=== PATIENT | male | born 1945 | race Caucasian/White ===

== ENCOUNTER 2022-12-03 18:08 | Emergency (ER) | payer MEDICARE, MEDICAID ==
[~2022-12-03] VITALS: Ht 188 cm; Wt 90.0 kg
[2022-12-03] MEDS ORDERED: budesonide 0.5mg/2ml UD nebule IH ONE (18:25)
[2022-12-03] MEDS ORDERED: ipratropium/albuterol 3ml nebule NEB ONE (18:25)
[2022-12-03 18:59] LABS: ABG BASE EXCESS -0.9 mmol/L (-2.0-2.0); ABG HCO3 22.9 mmol/L (22.0-26.0); ABG PCO2 (T) 36.3 mmHg (35.0-48.0); ABG PO2 (T) 100.5 mmHg (75.0-100.0); ALLEN'S TEST POSITIVE; FCOHb 1.6 % (0.0-3.9); FMetHb 0.3 % (0.0-1.5); FO2Hb 95.2 % (94-97); PATIENT TEMPERATURE 37.6; TOTAL HEMOGLOBIN 14.3 G/dl (14.0-17.9)
[2022-12-03 19:11] LABS: BASOPHILS # (AUTO) 0.1 X10'3 (0-0.2); BASOPHILS % (AUTO) 0.6 % (0-1); EOSINOPHILS # (AUTO) 0.2 X10'3 (0-0.9); EOSINOPHILS % (AUTO) 1.6 % (0-6); HEMATOCRIT 43.9 % (42.0-52.0); HEMOGLOBIN 14.2 g/dl (14.0-17.9); LYMPHOCYTES # (AUTO) 2.9 X10'3 (1.1-4.8); LYMPHOCYTES % (AUTO) 23.3 % (21-51); MEAN CORPUSCULAR HEMOGLOBIN 29.1 PG (27.0-31.0); MEAN CORPUSCULAR HGB CONC 32.3 g/dL (33.0-36.5); MEAN CORPUSCULAR VOLUME 90.2 FL (78-98); MEAN PLATELET VOLUME 7.5 FL (7.4-10.4); MONOCYTES % (AUTO) 15.9 % (2-12); NEUTROPHILS # (AUTO) 7.4 X10'3 (1.8-7.7); NEUTROPHILS % (AUTO) 58.6 % (42-75); PLATELET COUNT 370 X10'3 (140-440); RED BLOOD COUNT 4.87 X10'6 (4.70-6.10); RED CELL DISTRIBUTION WIDTH 15.8 % (11.5-14.5); WHITE BLOOD COUNT 12.6 X10'3 (4.5-11.0)
[2022-12-03 19:17] LABS: ALANINE AMINOTRANSFERASE 8 U/L (12-78); ALBUMIN 2.9 G/DL (3.4-5.0); ALBUMIN/GLOBULIN RATIO 0.9 (1.1-1.5); ALKALINE PHOSPHATASE 58 IU/L (46-116); ANION GAP 9 (8-16); ASPARTATE AMINO TRANSFERASE 13 U/L (10-37); BILIRUBIN,TOTAL 0.7 MG/DL (0.1-1.0); BLOOD UREA NITROGEN 18 MG/DL (7-18); CALCIUM 8.4 MG/DL (8.5-10.1); CHLORIDE 104 MMOL/L (99-107); GLUCOSE 89 MG/DL (70-104); POTASSIUM 3.9 MMOL/L (3.5-5.1); SODIUM 138 MMOL/L (135-145); TOTAL CARBON DIOXIDE 25.5 MMOL/L (24-32); eGFR 82 ML/MIN
[2022-12-03] MEDS ORDERED: doxycycline inj 100 MG in normal saline 100ml IV soln 100 ML IV ONE (19:50)
[2022-12-03] MEDS ORDERED: DOXY-1 PO (19:52)
[2022-12-03 20:27] LABS: TOTAL CELLS COUNTED 100
[2022-12-03 20:28] LABS: PLATELET ESTIMATE NORMAL; POIKILOCYTOSIS FEW
[2022-12-03 20:29] LABS: GIANT PLATELET FEW; LARGE PLATELETS FEW
[2022-12-03 20:30] LABS: SMUDGE CELLS 1+
[2022-12-03 23:14] VITALS: BP 111/60
== END 2022-12-03 23:19 ==
LOC: ER 18:10
DX: R06.02 Shortness of breath (principal)
CPT/HCPCS: 36415; 36600; 71045; 80053; 82803; 83880; 85007; 85018; 85025; 87040; 94640; 96365; 96375; 99284; J3490; J7030; 94760

== ENCOUNTER 2023-03-13 11:42 | Emergency (ER) | payer MEDICARE, MEDICAID, OTHER ==
[~2023-03-13] VITALS: Ht 175.3 cm; Wt 55.0 kg
[2023-03-13 11:56] VITALS: TEMP 97.8
--- NOTE | 2023-03-13 12:10 | NUR ---
FALL / SZ PRECAUTIONS IN PLACE
[2023-03-13 12:44] LABS: BASOPHILS % (AUTO) 0.2 % (0-1); EOSINOPHILS # (AUTO) 0.1 X10'3 (0-0.9); EOSINOPHILS % (AUTO) 0.3 % (0-6); HEMATOCRIT 43.1 % (42.0-52.0); HEMOGLOBIN 13.5 g/dl (14.0-17.9); LYMPHOCYTES # (AUTO) 1.1 X10'3 (1.1-4.8); LYMPHOCYTES % (AUTO) 6.3 % (21-51); MEAN CORPUSCULAR HEMOGLOBIN 28.8 PG (27.0-31.0); MEAN CORPUSCULAR HGB CONC 31.3 g/dL (33.0-36.5); MEAN CORPUSCULAR VOLUME 91.8 FL (78-98); MEAN PLATELET VOLUME 8.6 FL (7.4-10.4); MONOCYTES # (AUTO) 0.9 X10'3 (0-0.9); MONOCYTES % (AUTO) 5.2 % (2-12); NEUTROPHILS # (AUTO) 14.8 X10'3 (1.8-7.7); PLATELET COUNT 317 X10'3 (140-440); WHITE BLOOD COUNT 16.8 X10'3 (4.5-11.0)
[2023-03-13 13:00] LABS: APTT 23 SECONDS (22-32); PROTHROMBIN TIME 10.4 SECONDS (9.0-12.0)
[2023-03-13 13:09] LABS: ALANINE AMINOTRANSFERASE 8 U/L (12-78); ALBUMIN 2.8 G/DL (3.4-5.0); ALBUMIN/GLOBULIN RATIO 0.8 (1.1-1.5); ALKALINE PHOSPHATASE 81 IU/L (46-116); ANION GAP 29 (8-16); ASPARTATE AMINO TRANSFERASE 14 U/L (10-37); BILIRUBIN,TOTAL 0.4 MG/DL (0.1-1.0); BLOOD UREA NITROGEN 13 MG/DL (7-18); BUN/CREATININE RATIO 9.6 (10.0-20.0); CALCIUM 9.2 MG/DL (8.5-10.1); CHLORIDE 98 MMOL/L (99-107); CREATININE 1.36 MG/DL (0.60-1.10); GLUCOSE 122 MG/DL (70-104); POTASSIUM 3.6 MMOL/L (3.5-5.1); SODIUM 134 MMOL/L (135-145); TOTAL PROTEIN 6.1 G/DL (6.4-8.2); eCRCL 34 ML/MIN; eGFR 51 ML/MIN
[2023-03-13 13:11] LABS: TOTAL CELLS COUNTED 100
[2023-03-13 13:12] LABS: PLATELET ESTIMATE NORMAL
--- NOTE | 2023-03-13 13:17 | NUR ---
[facility] and spoke with jae díaz rn. jae advised that the pt was sent to the ER to be kept comfortable. pt is DNR/comfort care only, ER provider wanted further clarification on what the [facility] considers "comfortable". jae's contact [phone]
[2023-03-13 13:21] LABS: TOTAL CARBON DIOXIDE 6.7 MMOL/L (24-32)
[2023-03-13] MEDS ORDERED: POLY1DRO2 OP (13:36)
[2023-03-13] MEDS ORDERED: CYAN-34 PO (13:36)
[2023-03-13] MEDS ORDERED: CARB1TAB42 PO (13:36)
[2023-03-13] MEDS ORDERED: DOCU-148 PO (13:36)
[2023-03-13] MEDS ORDERED: TROS20TA4 PO (13:36)
[2023-03-13] MEDS ORDERED: CHOL100046 PO (13:36)
[2023-03-13] MEDS ORDERED: ASPI-611 PO (13:36)
[2023-03-13] MEDS ORDERED: LATA2.5D14 EACHEYE (13:36)
[2023-03-13] MEDS ORDERED: FLO0.4C PO (13:36)
[2023-03-13] MEDS ORDERED: CARB1TAB36 PO (13:36)
--- NOTE | 2023-03-13 13:50 | NUR ---
MD ATTEMPTING TO SPEAK WITH [facility] R[facility]T PT STATUS AND PLAN OF CARE. PT IS DNR, PT IS UNRESPONSIVE WITH A GCS OF 3 AND PINPOINT PUPILS.
[2023-03-13] MEDS ORDERED: levetiracetam inj 1,000 MG in normal saline 100ml IV soln 100 ML IV ONE (14:45)
[2023-03-13 16:12] VITALS: BP 95/63; PULSE 90; RESP 16; O2SAT 100
[2023-03-13] MEDS ORDERED: levetiracetam inj 1,000 MG in normal saline 100ml IV soln 90 ML IV ONE (20:00)
== END 2023-03-13 16:14 | disposition home or self-care (01) ==
LOC: ER 11:42
DX: R56.9 Unspecified convulsions (principal); I10 Essential (primary) hypertension; Z79.82 Long term (current) use of aspirin; Z79.899 Other long term (current) drug therapy
CPT/HCPCS: 36415; 71045; 80053; 84484; 85007; 85025; 85610; 85730; 93005; 96374; 99285; J1953; J3490